=== PATIENT | female | born 1985 | race Caucasian/White ===

== ENCOUNTER 2018-07-20 11:38 | Outpatient (CLI) | payer MEDICAID ==
[~2018-07-20] VITALS: Ht 152.4 cm; Wt 84.5 kg
[2018-07-20 11:51] VITALS: Ht 152.4 cm; Wt 84.5 kg
[2018-07-20 11:52] VITALS: BP 118/69; PULSE 55; RESP 17
--- NOTE | 2018-07-20 13:42 | TRIAGE ---
OB Triage Datetime Report Generated by CPN: 07/20/2018 13:42 Datetime: 07/20/2018 12:43 Labor Evaluation Pattern: Normal: <= 5 Contractions in 10 Minutes Resting Tone [place]: Relaxed Contraction Comments: no uc Heart Rate FHR Baseline Rate: 135 Monitor Mode: External US Variability: Moderate 6-25 bpm Accelerations: 15X15 Decelerations: None Category: Category I Pain Assessment Pain Presence: None/Denies Pain Type: N/A Datetime: 07/20/2018 11:54 Assessment Type: Triage Maternal Assessment Level of Consciousness: Fully Conscious DTR's/Clonus: DTRs 2+; No Clonus Headache: Denies Blurred Vision: No Respiratory Effort: Unlabored; Regular Rhythm; Equal Expansion Breath Sounds, Left: Clear and Equal Breath Sounds, Right: Clear and Equal Nausea/Vomiting: Denies RUQ Epigastric Pain: Denies Lower Extremities Edema: None Degree: None Upper Extremities Edema: None Degree: None Facial Edema: None Fall Risk Assessment History of Falling: (0) No Secondary Diagnosis: (0) No Ambulatory Aid: (0) Bedrest/Nurse Assist IV Therapy: (0) No Gait: (0) Normal/Bedrest/Immobile Mental Status: (0) Oriented to Own Ability Fall Score: 0 Fall Risk Score Definition: No Risk: No action required Datetime: 07/20/2018 11:53 Time of Arrival: 07/20/2018 11:34 EGA: 33.1 Arrived By: Ambulatory Arrived From: Office Chief Complaint: pt. came to ob triage with referral paper for nst, bpp, efw due to c/o decreased f m Movement: Decreased Contractions: Denies/Absent Rupture of Membranes: Denies Vaginal Bleeding: None Vaginal Discharge: Denies Recent Sexual Intercouse: Denies Abdominal Trauma: Not Applicable Patient Complaints: Other Time Provider Notified: 07/20/2018 12:32 Provider Notified: dinesh Initial Plan: nst, bpp, efw
--- NOTE | 2018-07-20 17:37 | PN ---
Triage Information Date/Time July 20, 2018 Reason for visit: DFM Weeks of Gestation 33 weeks and 2 days /Para Diabetes: none Hypertention: none Additional information 33-year-old with IUP at 33 weeks and 2 days presented with complaint of decreased movement. She denies any leaking of fluid, uterine contractions or vaginal bleeding. Denies any complication during the course. Objective Vital Signs Date Temp Pulse Resp B/P (MAP) Pulse Ox O2 O2 Flow FiO2 Time Delivery Rate 07/20/18 98.1 55 17 118/69 11:52 (85) Heart Rate: 130's Heart Rate Comments NST: Category 1 Contractions: None Exam GA: Alert and oriented x4 does not appear to be in acute distress Abdomen: Soft, gravid, fundal height consider gestational age NST: Category 1 and appropriate for gestational age BP: 12/14 Results/Medications Imaging Results PROCEDURE: US OB. CLINICAL INDICATION: Size and dates , labor TECHNIQUE: Multiple sonographic images of the pelvis and gravid uterus were obtained. The images were reviewed on a PACS workstation. COMPARISON: No prior studies are available for comparison. FINDINGS: Gestation: Single live intrauterine gestation. Cardiac activity: 134 beats per minute. Presentation: Vertex. Placenta: Location: Anterior. Appearance: No previa or abruption. Measurements: BPD = 8.5 cm, 34 weeks and 1 day HC = 31.1 cm, 34 weeks and 5 days AC = 31.8 cm, 35 weeks and 5 days FL = 6.3 cm, 32 weeks and 4 days Gestational Age: AUA estimated gestational age: 34 weeks 2 days LMP estimated gestational age: 33 weeks 1 day AUA estimated date of delivery: 08/29/18 The EFW = 2475 g, 84%ile based on LMP age. PROCEDURE: US OB biophysical profile. CLINICAL INDICATION: decreased movements, TECHNIQUE: Multiple sonographic images of the pelvis were obtained. The images were reviewed on a PACS workstation. COMPARISON: No prior studies are available for comparison. FINDINGS: There is a single live intrauterine gestation. Cardiac activity is present with 135 beats per minute. There is a vertex presentation. The placenta is anterior. There is no evidence of placental abruption. There is a normal amount of amniotic fluid with an TERRENCE = 11.3 cm. Biophysical profile: movement 2/2 tone 2/2. breathing 2/2 TERRENCE 06/10 Total 12/14 RPTAT: AA . IMPRESSION: Normal biophysical profile. . Disposition: Discharge Assessment/Plan IUP at 33 weeks and 2 days Decreased movement testing reassuring No evidence of labor Doing well DC home Strict labor precautions kick count and follow-up with primary OB office for the 48 hours after discharge from the hospital discussed with patient Patient verbalized understanding. All questions were answered to patient's best satisfaction. MELANIA DE LEON MD Jul 20, 2018 17:37
== END 2018-07-20 13:35 | disposition home or self-care (01) ==
LOC: OBT 11:38 → L-D 11:40 → OBT 13:35
PROVIDERS: ATTEND Obstetrics & Gynecology
DX: O36.8130 Decreased fetal movements, third trimester, not applicable or unspecified (principal); Z3A.33 33 weeks gestation of pregnancy
CPT/HCPCS: 76815; 76818; Z7500; G0463

== ENCOUNTER 2018-08-12 11:00 | Outpatient (CLI) | payer MEDICAID ==
[~2018-08-12] VITALS: Ht 152.4 cm; Wt 90.0 kg
[2018-08-12 11:37] VITALS: Ht 152.4 cm; Wt 90.0 kg
[2018-08-12 11:38] VITALS: BP 121/68; PULSE 55; RESP 18
--- NOTE | 2018-08-12 14:22 | TRIAGE ---
OB Triage Datetime Report Generated by CPN: 08/12/2018 14:22 Datetime: 08/12/2018 13:41 Maternal Assessment Level of Consciousness: Fully Conscious DTR's/Clonus: DTRs 2+ Headache: Denies Blurred Vision: No Nausea/Vomiting: Denies RUQ Epigastric Pain: Denies Facial Edema: None Labor Evaluation Frequency: IRREG Monitor Mode: External Duration (sec)2399: 60-70 Quality: Moderate Pattern: Normal: <= 5 Contractions in 10 Minutes Resting Tone [place]: Relaxed Heart Rate FHR Baseline Rate: 135 Monitor Mode: External US FHR Baseline Changes: No Baseline Change Variability: Moderate 6-25 bpm Accelerations: 15X15 Decelerations: None Category: Category I Pain Assessment Pain Scale: 0 Pain Presence: Intermittent Pain Location: Abdomen Pain Goal: 0 Pain Assessment Comments: PT DENIES FEELING UCS Vaginal Exam Dilatation (cms): 0.0 Effacement (%): 0 Exam By: MONROY RN Membrane Status: Intact Datetime: 08/12/2018 13:25 Stage of : OB Triage Datetime: 08/12/2018 12:10 Maternal Assessment Level of Consciousness: Fully Conscious DTR's/Clonus: DTRs 2+ Headache: Generalized Blurred Vision: No Nausea/Vomiting: Denies RUQ Epigastric Pain: Denies Facial Edema: None Labor Evaluation Frequency: 8 Monitor Mode: External Duration (sec)2399: 60-80 Quality: Mild Pattern: Normal: <= 5 Contractions in 10 Minutes Resting Tone [place]: Relaxed Heart Rate FHR Baseline Rate: 135 Monitor Mode: External US FHR Baseline Changes: No Baseline Change Variability: Moderate 6-25 bpm Accelerations: 15X15 Decelerations: None Category: Category I Pain Assessment Pain Scale: 3 Pain Presence: Constant Pain Type: Ache Pain Location: Head Membrane Status: Intact Datetime: 08/12/2018 11:34 Time of Arrival: 08/12/2018 10:50 EGA: 36.3 Arrived By: Ambulatory Arrived From: Home Chief Complaint: SENT FROM OFFICE 9 LB WT GAIN IN 1 WEEK Movement: Present Patient Complaints: Other Provider Notified: BETSY Initial Plan: EFM CALL DR MEYER FOR HADADIAN Datetime: 08/12/2018 11:33 Maternal Assessment Level of Consciousness: Fully Conscious DTR's/Clonus: DTRs 2+; No Clonus Headache: Denies Blurred Vision: No Respiratory Effort: Unlabored; Regular Rhythm; Equal Expansion Breath Sounds, Left: Clear and Equal Breath Sounds, Right: Clear and Equal Nausea/Vomiting: Denies RUQ Epigastric Pain: Denies Facial Edema: None Temperature Route: Axillary Fall Risk Assessment History of Falling: (0) No Secondary Diagnosis: (0) No Ambulatory Aid: (0) Bedrest/Nurse Assist IV Therapy: (0) No Gait: (0) Normal/Bedrest/Immobile Mental Status: (0) Oriented to Own Ability Fall Score: 0 Fall Risk Score Definition: No Risk: No action required Datetime: 07/20/2018 11:54 Fall Score: 0 Fall Risk Score Definition: No Risk: No action required Datetime: 07/20/2018 11:53 EGA: 33.1
--- NOTE | 2018-08-12 14:46 | PN ---
Triage Information Date/Time August 12, 2018 Reason for visit: Excessive weight gain in one week. Weeks of Gestation 36w 2d /Para 6/2 Diabetes: none Hypertention: none Additional information Pt gained 9# in the last week and also developed carpal tunnel syndrome. She was sent in by the clinic for evaluation. No FERRO's, visual changes, or epigastric pain. The baby is moving normally. PMHx: none. PSHx: none. NKDA. Objective Vital Signs Date Temp Pulse Resp B/P (MAP) Pulse Ox O2 O2 Flow FiO2 Time Delivery Rate 08/12/18 98.5 55 18 121/68 Room Air 11:38 (85) Heart Rate: 130's Heart Rate Comments Accels to 170 BPM. No decels. Contractions: >10 Minutes Apart Exam Closed/thick/high. Results/Medications Result Diagram: 08/12/18 1100 08/12/18 1100 Results 24 hrs Laboratory Tests Test 08/12/18 11:00 White Blood Count 6.2 Red Blood Count 3.94 L Hemoglobin 12.7 Hematocrit 38.3 Mean Corpuscular Volume 97.2 Mean Corpuscular Hemoglobin 32.2 Mean Corpuscular Hemoglobin Concent 33.2 Red Cell Distribution Width 13.1 Platelet Count 179 Mean Platelet Volume 11.1 H Immature Granulocytes % 1.000 H Neutrophils % 61.8 Lymphocytes % 26.3 Monocytes % 10.0 Eosinophils % 0.6 Basophils % 0.3 Nucleated Red Blood Cells % 0.0 Immature Granulocytes # 0.060 H Neutrophils # 3.8 Lymphocytes # 1.6 Monocytes # 0.6 Eosinophils # 0.0 Basophils # 0.0 Nucleated Red Blood Cells # 0.0 Prothrombin Time 11.9 Prothrombin Time Ratio 0.9 INR International Normalized Ratio 0.87 Activated Partial Thromboplast Time 26.4 Fibrinogen 447.0 Urine Color STRAW Urine Clarity CLEAR Urine pH 7.0 Urine Specific [place] 1.002 L Urine Ketones NEGATIVE Urine Nitrite NEGATIVE Urine Bilirubin NEGATIVE Urine Urobilinogen NEGATIVE Urine Leukocyte Esterase TRACE A Urine Microscopic RBC 0 Urine Microscopic WBC 0 Urine Bacteria FEW A Urine Hemoglobin NEGATIVE Urine Glucose NEGATIVE Urine Total Protein NEGATIVE Sodium Level 137 Potassium Level 4.1 Chloride Level 105 Carbon Dioxide Level 25 Anion Gap 7 Blood Urea Nitrogen 10 Creatinine 0.48 Est Glomerular Filtrat Rate mL/min > 60 Glucose Level 73 Uric Acid 3.8 Calcium Level 9.1 Total Bilirubin 0.3 Direct Bilirubin 0.00 Indirect Bilirubin 0.3 Aspartate Amino Transf (AST/SGOT) 25 Alanine Aminotransferase (ALT/SGPT) 13 Alkaline Phosphatase 265 H Total Protein 6.5 Albumin 3.4 Globulin 3.10 Albumin/Globulin Ratio 1.09 Imaging Results BPP 8 with an TERRENCE of 12.8 VTX. Disposition: Discharge Assessment/Plan A: IUP at 36w 2d. Excessive weight gain in 1 week but no evidence of PIH. P: Pt to f/u at the clinic in 3 days to recheck her BP. PIH precautions reviewed with the pt. Labor precautions reviewed as well. MARSHALL MEYER MD Aug 12, 2018 14:46
== END 2018-08-12 14:52 | disposition home or self-care (01) ==
LOC: L-D 11:00 → OBT 11:00
PROVIDERS: ATTEND Obstetrics & Gynecology
DX: O26.03 Excessive weight gain in pregnancy, third trimester (principal); O26.893 Other specified pregnancy related conditions, third trimester; G56.00 Carpal tunnel syndrome, unspecified upper limb; Z3A.36 36 weeks gestation of pregnancy
CPT/HCPCS: 36415; 76818; 80053; 81001; 84560; 85025; 85384; 85610; 85730; Z7500; G0463

== ENCOUNTER 2018-08-17 04:15 | Inpatient (IN) | payer MEDICAID ==
[~2018-08-17] VITALS: Ht 154.9 cm; Wt 89.0 kg
[2018-08-17 04:27] VITALS: Ht 154.9 cm; Wt 89.0 kg
[2018-08-17] MEDS ORDERED: FER325 PO (04:30)
[2018-08-17] MEDS ORDERED: PREN-93 PO (04:30)
[2018-08-17] MEDS ORDERED: ASC500 PO (04:30)
[2018-08-17 04:34] VITALS: BP 120/75; PULSE 60; RESP 17
[2018-08-17] MEDS ORDERED: LIDOCAINE 1% (MPF) 30 ML INJ INJ PRN (05:00)
[2018-08-17] MEDS ORDERED: CARBOPROST 250 MCG INJ IM PRN ×2 (05:00→23:30)
[2018-08-17] MEDS ORDERED: MISOPROSTOL 200 MCG TAB PR PRN ×2 (05:00→23:30)
[2018-08-17] MEDS ORDERED: BUTORPHANOL 2 MG INJ IV PRN (05:00)
[2018-08-17] MEDS ORDERED: IBUPROFEN 600 MG TAB PO PRN (05:00)
[2018-08-17] MEDS ORDERED: OXYTOCIN 30 UNITS/LR 500 ML IV PRN ×2 (05:00→23:30)
[2018-08-17] MEDS ORDERED: AMPICILLIN 2 GM/NS (PMX) 100 ML IVPB ONE (05:00)
[2018-08-17] MEDS ORDERED: OXYTOCIN 30 UNITS/LR 500 ML IV SCH ×2 (05:00)
[2018-08-17] MEDS ORDERED: METHYLERGONOVINE 0.2 MG INJ IM PRN ×2 (05:00→23:30)
[2018-08-17] MEDS: LACTATED RINGER'S 1,000 ML IV SCH ×3 (05:33→20:53)
--- NOTE | 2018-08-17 07:10 | HP ---
Date/Time of Note Date/Time of Note DATE: 08/17/18 TIME: 07:03 OB - History Hx of Present Free Text/Dictation Patient is a 33-year-old 6 para 2 at 37 weeks and 1 day of gestation with estimated date of delivery September 06, 2018 Patient presents with chief complaint of rupture membrane at 2 AM She reports positive movement, denies any vaginal bleeding or leaking fluid GBS status is positive Estimated Due Date: September 06, 2018 : 6 Para: 2 Care: Good Care Past Family/Social History * Past Medical, Surgical, Family and Obstetric Histories reviewed from [facility]. OB Admission Exam Vital Signs Vital Signs Vital Signs Date Temp Pulse Resp B/P (MAP) Pulse Ox O2 O2 Flow FiO2 Time Delivery Rate 08/17/18 98.0 60 17 120/75 Room Air 04:34 (90) Physical Exam HEENT: WNL Heart: Rhythm Normal Lungs: Clear, Equal Abdomen: WNL Extremities: Normal Reflexes: Normal Cervical Dilatation: 1cm Effacement: 25% Station: -3 Membranes: Ruptured Amniotic Fluid: Clear Heart Rate: 140's Accelerations: Accelerations Present Decelerations: No Decelerations Varibility: Moderate Contractions on Admission: 6-10 Minutes Apart Intensity: Moderate Last 72 hours Lab Results CBC & BMP 08/17/18 05:30 PROCEDURE: US OB. CLINICAL INDICATION: Labor. TECHNIQUE: Multiple sonographic images of the uterus were obtained. The images were reviewed on a PACS workstation. COMPARISON: US PELVIS 08/12/2018; US 07/20/2018 FINDINGS: There is a single live intrauterine gestation. heart rate is 148 beats per minute. Measurements were made in order to determine age. The results are as follows: BPD = 8.79 cm. HC = 31.43 cm. AC = 32.87 cm. FL = 7.02 cm. Estimated weight is 2894 +/- 434 grams. LMP growth percentile is 33.6 %. Menstrual age by ultrasound dates is 35 weeks 6 days. The estimated date of delivery is 09/15/2018. Position is cephalic and placenta is anterior grade II. There is no evidence for an abruption or placenta previa. IMPRESSION: 1. Single live intrauterine gestation of 35 weeks 6-day menstrual age by ultrasound dates. 2. The estimated date of delivery is 09/15/2018. RPTAT: HRSR Physician Annabella Date Time Electronically viewed and signed by Corby Montes Physician on 08/17/2018 05:35 RR/ CC: ARIE MURDOCK MD [id number] PROCEDURE: US OB biophysical profile. CLINICAL INDICATION: Labor. TECHNIQUE: Multiple sonographic images of the pelvis were obtained. The images were reviewed on a PACS workstation. COMPARISON: Ultrasound 08/12/2018. FINDINGS: There is a single live intrauterine gestation. There is a [<normal>] amount of amniotic fluid with an TERRENCE = 8.16 cm. Cardiac activity is present with 156 beats per minute. There is a cephalic presentation. The placenta is anterior grade II Biophysical profile: movement [<2/2>] tone [<2/2.>] breathing [<2/2 >] TERRENCE [<2/2>] Total [<8/8 >] IMPRESSION: [<Normal biophysical profile. >] [<>] . [<RPTAT: HRSR>] Corby Montes Physician Date Time Electronically viewed and signed by Corby Montes Physician on 08/17/2018 05:36 RR/ CC: ARIE MURDOCK MD [id number] OB Assessment/Plan Reason for admission: rupture of membranes Induction Method: per Pitocin Protocol Other plan: Admit to labor and delivery Antibiotics for GBS prophylaxis Oxytocin augmentation Pain meds as needed Copies To: CC: ANDREW AL ; ARIE MURDOCK MD Aug 17, 2018 07:10
--- NOTE | 2018-08-17 07:10 | TRIAGE ---
OB Triage Datetime Report Generated by CPN: 08/17/2018 07:10 Datetime: 08/17/2018 06:59 Labor Evaluation Frequency: 4-6 Monitor Mode: External Duration (sec)2399: 50-90 Quality: Mild Pattern: Normal: <= 5 Contractions in 10 Minutes Resting Tone [place]: Relaxed Heart Rate FHR Baseline Rate: 150 Monitor Mode: External US Variability: Moderate 6-25 bpm Accelerations: 15X15 Decelerations: None Category: Category I Datetime: 08/17/2018 05:52 Assessment Type: Admission Assessment Time of Arrival: 08/17/2018 04:11 EGA: 37.1 Arrived By: Wheelchair Arrived From: Home Chief Complaint: PT REPORTED LEAKING FLUIDS AT 0200 Movement: Present Contractions: Irregular Contractions: 7-9 Rupture of Membranes: Ruptured Vaginal Bleeding: None Vaginal Discharge: Present Recent Sexual Intercouse: Denies Abdominal Trauma: Not Applicable Patient Complaints: Other Time Provider Notified: 08/17/2018 05:52 Provider Notified: DR. DOMINGUEZ Initial Plan: EFM, SVE, NITRIZINE, CALL OB Maternal Assessment Level of Consciousness: Fully Conscious DTR's/Clonus: DTRs 2+; No Clonus Headache: Denies Blurred Vision: No Respiratory Effort: Unlabored; Regular Rhythm; Equal Expansion Breath Sounds, Left: Clear and Equal Breath Sounds, Right: Clear and Equal Nausea/Vomiting: Denies RUQ Epigastric Pain: Denies Lower Extremities Edema: Bilateral Lower Extremities Degree: 2+ Upper Extremities Edema: None Degree: None Facial Edema: None Fall Risk Assessment History of Falling: (0) No Secondary Diagnosis: (0) No Ambulatory Aid: (0) Bedrest/Nurse Assist IV Therapy: (20) Yes Gait: (0) Normal/Bedrest/Immobile Mental Status: (0) Oriented to Own Ability Fall Score: 20 Fall Risk Score Definition: No Risk: No action required Labor Evaluation Frequency: OCCASIONAL Duration (sec)2399: 60-90 Quality: Mild Pattern: Normal: <= 5 Contractions in 10 Minutes Resting Tone [place]: Relaxed Heart Rate FHR Baseline Rate: 140 Variability: Moderate 6-25 bpm Accelerations: 15X15 Decelerations: None Category: Category I Pain Assessment Pain Scale: 0 Pain Presence: None/Denies Pain Type: N/A Membrane Status: Ruptured Datetime: 08/17/2018 04:40 Vaginal Exam Dilatation (cms): 1.0 Effacement (%): 30 Station: -3 Exam By: Nadia BAEZFLAKITO Membrane Status: Ruptured Membranes Rupture Method: Spontaneous Amniotic Fluid Color: Clear Amniotic Fluid Amount: Large Amniotic Fluid Odor: None Vaginal Bleeding: None Pool: Positive Nitrazine: Positive Cervix, Consistency: Moderate Cervix, Position: Posterior Datetime: 08/17/2018 04:34 Stage of : OB Triage Maternal Assessment Level of Consciousness: Fully Conscious DTR's/Clonus: DTRs 2+; No Clonus Headache: Denies Blurred Vision: No Respiratory Effort: Unlabored; Regular Rhythm; Equal Expansion Breath Sounds, Left: Clear and Equal Breath Sounds, Right: Clear and Equal Nausea/Vomiting: Denies RUQ Epigastric Pain: Denies Lower Extremities Edema: Bilateral Lower Extremities Degree: 2+ Upper Extremities Edema: None Degree: None Facial Edema: None Temperature Route: Oral Fall Risk Assessment History of Falling: (0) No Secondary Diagnosis: (0) No Ambulatory Aid: (0) Bedrest/Nurse Assist IV Therapy: (0) No Gait: (0) Normal/Bedrest/Immobile Mental Status: (0) Oriented to Own Ability Fall Score: 0 Fall Risk Score Definition: No Risk: No action required Pain Assessment Pain Scale: 0 Pain Presence: None/Denies Pain Type: N/A Datetime: 08/12/2018 14:43 Arrived From: Home Movement: Present Contractions: Irregular Contractions: 7- Rupture of Membranes: Ruptured Recent Sexual Intercouse: Denies Abdominal Trauma: Not Applicable Provider Notified: DR. DOMINGUEZ Datetime: 08/12/2018 11:34 EGA: 36.3 Datetime: 08/12/2018 11:33 Fall Score: 0 Fall Risk Score Definition: No Risk: No action required Datetime: 07/20/2018 11:54 Fall Score: 0 Fall Risk Score Definition: No Risk: No action required Datetime: 07/20/2018 11:53 EGA: 33.1
[2018-08-17] MEDS: OXYTOCIN 30 UNITS/LR 500 ML IV SCH ×2 (08:34→20:39)
[2018-08-17] MEDS: AMPICILLIN 1 GM/NS (PMX) 50 ML IVPB SCH ×4 (09:32→21:00)
[2018-08-17 22:15] VITALS: BP 130/56; PULSE 59; RESP 18
--- NOTE | 2018-08-17 22:36 | LDN ---
Date/Time of Note Date/Time of Note DATE: 08/17/18 TIME: 22:25 Delivery Summary 33 years old with single intrauterine at 37 weeks and 1 day delivered a viable male over intact perineum at 20:24. There was tight nuchal cord x1 which clamped and cut. Rest of body delivered. Baby given to the nurse. Placenta delivered intact and spontaneously with three-vessel cord. Patient tolerated procedure well Weight 6 pounds 10 ounces 8 at 1 minutes and 9 at 5 minutes EBL 150 mL Weeks of Gestation 37 weeks and 1 day Placenta Delivered: Spontaneously Meconium: none Episiotomy: No Estimated blood loss: 150 Sponge & Needle done & correct: Yes All needle counts correct: Yes Any foreign bodies felt in the: No Delivery Information Sex Infant Sex: male Apgars 1 Minute: 8 5 Minute: 9 10 Minute: 10 Suctioning Nose & mouth suctioned at yossi: Yes Umbilical Cord Umbilical cord with: 3 Vessels Cord presentations: nuchal cord Nuchal cord present X: 1 Cord Blood was obtained: Yes Mother & Baby Disposition Disposition Mom & Baby to Maternity; Good: Yes ANDREW AL Aug 17, 2018 22:35
[2018-08-17] MEDS ORDERED: LACTATED RINGER'S 1,000 ML IV* SCH (23:03)
[2018-08-17] MEDS ORDERED: DEXTROSE 5%-LR 1,000 ML IV SCH (23:03)
[2018-08-17] MEDS ORDERED: BENZOCAINE 20% 56 ML SPRAY TOP PRN (23:30)
[2018-08-17] MEDS ORDERED: WITCH HAZEL/GLYCERIN PAD PR PRN (23:30)
[2018-08-17] MEDS ORDERED: LANOLIN HPA 1 PKT TOP PRN (23:30)
[2018-08-17] MEDS ORDERED: DIPHENHYDRAMINE 50 MG INJ IV PRN (23:30)
[2018-08-17] MEDS ORDERED: ACETAMINOPHEN 325 MG TAB PO PRN (23:30)
[2018-08-17] MEDS ORDERED: OXYCODONE/ASPIRIN (4.88/325) TAB PO PRN (23:30)
[2018-08-17] MEDS ORDERED: SENNA/DOCUSATE NA (8.6MG/50MG) TAB PO PRN (23:30)
[2018-08-17] MEDS ORDERED: MAGNESIUM HYDROXIDE 30ML CUP PO PRN (23:30)
[2018-08-17] MEDS ORDERED: DIBUCAINE 1% 30 GM OINT TOP PRN (23:30)
[2018-08-17] MEDS ORDERED: ZOLPIDEM 5 MG TAB PO PRN (23:30)
[2018-08-17] MEDS ORDERED: ONDANSETRON 4 MG INJ IV PRN (23:30)
[2018-08-18] MEDS: IBUPROFEN 600 MG TAB PO SCH ×5 (00:10→23:22)
[2018-08-18 03:45] VITALS: BP 106/65; PULSE 68; RESP 18
[2018-08-18 08:00] VITALS: BP 102/55; PULSE 62; RESP 18
[2018-08-18 15:55] VITALS: BP 102/53; PULSE 66; RESP 18
[2018-08-18 20:00] VITALS: BP 110/61; PULSE 76; RESP 20
--- NOTE | 2018-08-18 23:59 | QN ---
Documentation Comment 33 years old G6 P 3033 s/p normal vaginal delivery at 37 weeks and 1 day. Post day 1. She is ambulating and tolerating regular diet. Pain is controlled on current medication. She is voiding without difficulty. She is afebrile, vital signs stable. Continue current management ANDREW AL Aug 18, 2018 23:59
[2018-08-19 02:47] VITALS: BP 101/61; PULSE 74; RESP 20
[2018-08-19] MEDS: IBUPROFEN 600 MG TAB PO SCH ×3 (05:32→17:27)
[2018-08-19 07:40] VITALS: BP 123/70; PULSE 61; RESP 18
[2018-08-19] MEDS ORDERED: DIPHTH/TET/ACEL PERTUSS (ADULT) 0.5 ML VIAL IM* ONE (09:00)
[2018-08-19] MEDS ORDERED: MEASLES,MUMPS,RUBELLA VACCINE INJ SC* ONE (09:00)
[2018-08-19 15:33] VITALS: BP 117/67; PULSE 54; RESP 18
--- NOTE | 2018-08-19 15:33 | PD.PPDC ---
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 Diagnosis [id number] Final Diagnosis: Hrdcw0a s/p Condition [id number] Patient Condition: Mynor3i Stable Diet Dhrqm1Ul Diet: Gfbdp6p Resume Regular Diet Activity/Restrictions [id number] Activity: Sijls9t May Shower Ufidk5Vy Restrictions: Rsjnq7m No Sexual Activity Nothing in the Vagina No [place] No Tampons, douche Follow-up Follow-up with Physician: 2, Week/Weeks Return to clinic for [id number] [employer]ER Instructions: Oifqn0b Fever greater than 101 Chills Worsening abdominal pain Excessive Vaginal Bleeding More than 2 pads per hour Unable to tolerate diet [id number] OB Instructions: Aerqf6u Breast Tenderness Depression Blurried Vision Headache NICHOLE ESPINOZA MD Aug 19, 2018 15:33
--- NOTE | 2018-08-19 15:36 | DS ---
Date/Time of Note Date/Time of Note DATE: 08/19/18 TIME: 15:35 Obstetrical Discharge Record Final Diagnosis Final Diagnosis: Term delivered Vaginal Delivery Obstetrical Delivery: Spontaneous Complications Augmentation: No Induction: No Rupture of Membranes: No Condition on Discharge Physical Assessment Last Vitals: nss afebrile Voiding: Yes Bowel Movement: Yes Breast: Soft, non-tender Fundus: Firm Abdomen and Incision: n/a Episiotomy: n/a Calf Tenderness: No Patient Condition: Stable NICHOLE ESPINOZA MD Aug 19, 2018 15:36
--- NOTE | 2018-08-20 22:58 | DELSUM ---
Delivery Summary A-C Datetime Report Generated by CPN: 08/20/2018 22:57 DELIVERY PERSONNEL Family Consultant: [place], Ai MATERNAL INFORMATION Delivery Anesthesia: None Medications in Delivery: 30 UNITS PITOCIN Delivery QBL (ml): 150 Placenta Cultured: No Maternal Complications: PROM LABOR SUMMARY EDC: 09/06/2018 00:00 No. Babies in Womb: 1 Attempted: No Labor Anesthesia: None LABOR INFORMATION Reason for Induction: PROM Onset of Labor: 08/17/2018 12:00 Complete Dilatation: 08/17/2018 20:05 Oxytocin: Augmentation Group B Beta Strep: Positive Antibiotics # of Doses: 4 Antibiotics Time of Last Dose: 08/17/2018 18:00 Steroids Given: None Reason Steroids Not Administered: Not Applicable MEMBRANES Membranes Rupture Method: Spontaneous Rupture of Membranes: 08/17/2018 02:00 Length of Rupture (hr): 18.40 Amniotic Fluid Color: Clear Amniotic Fluid Amount: Large Amniotic Fluid Odor: None STAGES OF LABOR Stage 1 hr: 8 Stage 1 min: 5 Stage 2 hr: 0 Stage 2 min: 19 Stage 3 hr: 0 Stage 3 min: 5 Total Time in Labor hr: 8 Total Time in Labor min: 29 VAGINAL DELIVERY Episiotomy: None Laceration Extension: N/A Laceration Type: None Laceration Repair: Not Applicable Initial Vag Sponge Count: 10 Final Vag Sponge Count: 10 Initial Vag Sharps Count: 1 Final Vag Sharps Count: 1 Sponge Count Correct: Yes; Vaginal Sweep Performed Sharps Count Correct: Yes BABY A INFORMATION Delivery Date/Time: 08/17/2018 20:24 Method of Delivery: Vaginal Born in Route : No : N/A Forceps: N/A Vacuum Extraction: N/A Shoulder Dystocia : N/A SHOULDER DYSTOCIA BABY A Infant Delivery Date/Time: 08/17/2018 20:24 PRESENTATION/POSITION BABY A Presentation: Cephalic Cephalic Presentation: Vertex Breech Presentation: N/A PLACENTA INFORMATION BABY A Placenta Delivery Time : 08/17/2018 20:29 Placenta Method of Delivery: Expressed Placenta Status: Delivered SCORES BABY A Heart Rate 1 min: >100 bpm Resp Effort 1 min: Good Cry Reflex Irritability 1 min: Cough/Sneeze/Pulls Away Muscle Tone 1 min: Active Motion Color 1 min: Blue/Pale Resuscitation Effort 1 min: Tactile Stimulation SCORE 1 MIN: 8 Heart Rate 5 min: >100 bpm Resp Effort 5 min: Good Cry Reflex Irritability 5 min: Cough/Sneeze/Pulls Away Muscle Tone 5 min: Active Motion Color 5 min: Body [place], Extremit Blue Resuscitation Effort 5 min: Tactile Stimulation SCORE 5 MIN: 9 INFORMATION BABY A Gestational Age at Delivery: 37.1 Gestational Status: Early Term- 37- 38.6 Weeks Outcome : Liveborn Infant Condition : Stable Infant Sex: Male IDENTIFICATION/MEDS BABY A ID Band Number: [id number] ID Band Location: Right Leg; Left Arm Sensor Applied: Yes Sensor Number: [id number] Sensor Location : Cord Clamp Vitamin K Given : Not Given Erythromycin Given: Not Given WEIGHT/LENGTH BABY A Infant Birthweight (gm): 2995 Infant Weight (lb): 6 Weight (oz): 10 Infant Length (in): 19.25 Infant Length (cm): 48.90 CORD INFORMATION BABY A No. Cord Vessels: 3 Nuchal Cord : Around Neck x1, Tight Cord Blood Taken: Yes Suction: Mouth; Nose ASSESSMENT BABY A Infant Complications: Multiple Variable Decels Physical Findings at Delivery: Within Normal Limits Respirations: Appears Normal Vp Of Product/ALS Called : No Care By: MILTON KAMINSKI Transferred To: Remains with Mother
== END 2018-08-19 20:30 | disposition home or self-care (01) | DRG 807 ==
LOC: L-D 04:15 → OBT 04:15 → L-D 04:52 → PP1 22:20
PROVIDERS: ADMIT Obstetrics & Gynecology; ATTEND Obstetrics & Gynecology
PROC: 10E0XZZ Delivery of Products of Conception, External Approach (ICD-10-PCS; principal; 2018-08-17)
DX: O69.1XX0 Labor and delivery complicated by cord around neck, with compression, not applicable or unspecified (principal); Z37.0 Single live birth; Z3A.37 37 weeks gestation of pregnancy
CPT/HCPCS: 76815; 76818; 85025; 85610; 85730; 86592; 86850; 86900; 86901; 90715; 99464; G0463; J0290; J2590; J7120; J7121